=== PATIENT | female | born 1975 | race Two or more races ===

== ENCOUNTER 2018-10-19 16:32 | Emergency (ER) | payer SELFPAY ==
[~2018-10-19] VITALS: Ht 167.6 cm; Wt 80.0 kg
[2018-10-19 16:35] VITALS: BP 161/99
== END 2018-10-19 23:09 | disposition left against medical advice (07) ==
LOC: ER 16:32
DX: R51 Headache (principal); Z53.21 Procedure and treatment not carried out due to patient leaving prior to being seen by health care provider